=== PATIENT | male | born 1965 | race Caucasian/White ===

== ENCOUNTER → 2017-06-04 | Outpatient (CLI) | payer OTHER | END | disposition home or self-care (01) | LOC: RT 08:59 | DX: G47.33 Obstructive sleep apnea (adult) (pediatric) (principal) | CPT/HCPCS: G0399 ==

== ENCOUNTER → 2019-09-09 | Outpatient (CLI) | payer OTHER ==
[2017-07-08 10:52] VITALS: BP 119/79
[~2019-09-09] MED LIST: ALPR0.5T6 PO; CYCL10TA2 PO; HYDROCODONE-IB1 EAC3 PO; METO-239 PO; RIVA20TA2 PO
--- NOTE | 2019-09-09 15:50 | KCIC ---
EXAM: ABDOMEN 2 VIEWS. HISTORY: Abdominal pain, constipation. COMPARISON: None. FINDINGS: Supine and upright views of the abdomen are obtained. There is no pneumoperitoneum. There are no distended small bowel loops or significant air fluid levels. There is gas distally. Stool throughout the right colon suggests mild constipation. There is a mild lumbar dextrocurvature. A cardiac monitoring device projects over the left chest. There is moderately decreased femoral head/neck offset bilaterally. IMPRESSION: 1. No evidence of obstruction. Correlate for mild constipation. Electronically signed by: Adi Taylor MD (09/09/2019 3:46 PM) [id number]
== END | disposition home or self-care (01) ==
LOC: KCIC 14:10
PROVIDERS: ATTEND Physician Assistant Medical
DX: K59.00 Constipation, unspecified (principal); R14.0 Abdominal distension (gaseous); M43.8X6 Other specified deforming dorsopathies, lumbar region
CPT/HCPCS: 74021

== ENCOUNTER → 2019-12-03 | Outpatient (CLI) | payer OTHER ==
[2017-07-08 10:52] VITALS: BP 119/79
[~2019-12-03] MED LIST changes: +IOHEXOL 240 MG/ML 50ML VIAL. PO ONE; +IOHEXOL 300 MG/ML 100ML VIAL. IV ONE
--- NOTE | 2019-12-03 16:00 | KCIC ---
CT scan of the abdomen and pelvis with IV and oral contrast and without comparison for weight loss, constipation for 8 months. TECHNIQUE: Contiguous axial CT images are obtained through the abdomen and pelvis following administration of IV and oral contrast. Sagittal and coronal reformations are evaluated. FINDINGS: There are antecedent granulomatous changes in the spleen. No abnormalities of the liver, pancreas, gallbladder, bilateral adrenal glands, or bilateral kidneys. The appendix is normal. There is inhomogeneous opacification of large and small bowel, with no evidence of suspicious focal bowel wall thickening or bowel obstruction. There is a moderate amount of air and stool distributed throughout the colon. No free or loculated fluid collections are identified. No suspicious mesenteric or retroperitoneal adenopathy is seen. The urinary bladder is partially fluid distended and grossly unremarkable. There is fullness of the prostate without a discrete mass. No significant osteoblastic grossly bone lesions. There is straightening of the normal lumbar lordosis with no significant osseous abnormality. IMPRESSION: 1. No acute intra-abdominal or intrapelvic pathology is identified. 2. There is fullness of the prostate without a discrete mass. PQRS Compliance Statement: One or more of the following individualized dose reduction techniques were utilized for this examination: 1. Automated exposure control 2. Adjustment of the mA and/or kV according to patient size 3. Use of iterative reconstruction technique Electronically signed by: Yong Pereira MD (12/03/2019 3:57 PM) [id number]
== END | disposition home or self-care (01) ==
LOC: KCIC CT 09:08
PROVIDERS: ATTEND Internal Medicine Gastroenterology
DX: R63.4 Abnormal weight loss (principal); R19.4 Change in bowel habit; M40.46 Postural lordosis, lumbar region
CPT/HCPCS: 74177; Q9966; Q9967